=== PATIENT | male | born 1945 | race Caucasian/White ===

== ENCOUNTER 2021-10-25 04:30 | Day surgery (SDC) | payer BC ==
[2021-10-22 08:00] VITALS: BMI 22.8
[2021-10-25 08:54] VITALS: TEMP 98
[2021-10-25 10:12] VITALS: BP 92/58; PULSE 66
== END 2021-10-25 10:00 | disposition home or self-care (01) ==
LOC: JASU-ENDO 04:30
PROVIDERS: ATTEND Internal Medicine Gastroenterology
PROC: 0DBL8ZX Excision of Transverse Colon, Via Natural or Artificial Opening Endoscopic, Diagnostic (ICD-10-PCS; 2021-10-25)
PROC: 0DBH8ZX Excision of Cecum, Via Natural or Artificial Opening Endoscopic, Diagnostic (ICD-10-PCS; principal; 2021-10-25 08:00)
DX: Z12.11 Encounter for screening for malignant neoplasm of colon (principal); D12.0 Benign neoplasm of cecum; D12.3 Benign neoplasm of transverse colon; K57.30 Diverticulosis of large intestine without perforation or abscess without bleeding; K64.8 Other hemorrhoids
CPT/HCPCS: 88305-TC